=== PATIENT | female | born 1950 | race Asian ===

== ENCOUNTER → 2018-05-31 | Outpatient (CLI) | payer MEDICARE, OTHER ==
[~2018-05-31] MED LIST: ATEN25TA PO; PRAV10TA39 PO
== END | disposition home or self-care (01) ==
LOC: RADPV 11:34
PROVIDERS: ATTEND Legal Medicine
DX: M19.031 Primary osteoarthritis, right wrist (principal); I70.0 Atherosclerosis of aorta; M17.11 Unilateral primary osteoarthritis, right knee; M17.12 Unilateral primary osteoarthritis, left knee